=== PATIENT | female | born 1990 | race Caucasian/White ===

== ENCOUNTER 2024-04-15 08:50 | Emergency (ER) | payer OTHER ==
[~2024-04-15] VITALS: Ht 157.5 cm; Wt 78.5 kg
[2024-04-15] MEDS ORDERED: Famotidine 20 MG Tab PO ONE (10:00)
[2024-04-15] MEDS ORDERED: PredniSONE 20 MG Tab PO ONE (10:00)
[2024-04-15] MEDS ORDERED: DiphenhydrAMINE HCL 25 MG Cap PO ONE (10:05)
[2024-04-15] MEDS ORDERED: Prednisone20 MG PO (10:17)
[2024-04-15] MEDS ORDERED: Veetids 500500 MG PO (10:17)
== END 2024-04-15 11:02 | disposition home or self-care (01) ==
LOC: ER 08:50
DX: J02.0 Streptococcal pharyngitis (principal); L50.9 Urticaria, unspecified; F17.290 Nicotine dependence, other tobacco product, uncomplicated
CPT/HCPCS: 87430; 99283; A9270; J7512

== ENCOUNTER 2024-09-01 10:05 | Emergency (ER) | payer SELFPAY ==
[~2024-09-01] VITALS: Ht 157.5 cm; Wt 80.7 kg
[~2024-09-01 10:05] MED LIST: Prednisone20 MG PO; Veetids 500500 MG PO
[2024-09-01] MEDS ORDERED: PRED10 PO (10:43)
[2024-09-01] MEDS ORDERED: ALLEGRA ALLERGY60 MG PO (10:43)
== END 2024-09-01 10:44 | disposition home or self-care (01) ==
LOC: ER 10:05
DX: R21 Rash and other nonspecific skin eruption (principal); Z79.899 Other long term (current) drug therapy
CPT/HCPCS: 99282